=== PATIENT | female | born 1955 | race Caucasian/White ===

== ENCOUNTER → 2022-03-14 | Day surgery (SDC) | payer OTHER ==
[~2022-03-14] VITALS: Ht 167.6 cm; Wt 108.9 kg
[~2022-03-14] MED LIST: AMARYL2 MG PO; ASPIRIN EC81 MG PO; JARDIANCE25 MG PO; MAG DELAY64 MG PO; METFORMIN HCL500 MG PO; PRAVASTATIN SOD40 MG PO; PROTONIX 40MG T40 MG PO; VITAMIN D325 MC1 PO; ZESTRIL5 MG PO
[2022-03-14 10:21] LABS: HCT 46.8 % (37.0-47.0); HGB 14.5 g/dl (12.5-16.0); MCH 26.6 pg (25.0-31.0); MCV 85.7 fL (78.0-100.0); MPV 9.2 fL (6.0-9.5); RBC 5.46 M/uL (4.20-5.40); WBC 9.5 K/uL (4.0-10.5)
[2022-03-14 11:59] LABS: BUN/CREAT RATIO (CALC) 25.9 RATIO; CREATININE 0.58 mg/dL (0.51-0.95); POTASSIUM 3.9 mmol/L (3.5-5.1)
== END | disposition home or self-care (01) ==
LOC: FAS 09:00
PROVIDERS: Anesthesiology; Legal Medicine
DX: M75.121 Complete rotator cuff tear or rupture of right shoulder, not specified as traumatic (principal); M19.011 Primary osteoarthritis, right shoulder; M75.41 Impingement syndrome of right shoulder; G89.18 Other acute postprocedural pain; I10 Essential (primary) hypertension; E11.9 Type 2 diabetes mellitus without complications; K21.9 Gastro-esophageal reflux disease without esophagitis; Z79.82 Long term (current) use of aspirin; Z79.84 Long term (current) use of oral hypoglycemic drugs; Z79.899 Other long term (current) drug therapy
CPT/HCPCS: 36415; 80048; 82962; C1713; J0171; J0690; J1100; J2250; J2405; J2704; J2795; J3010; J7120